=== PATIENT | male | born 1960 | race Caucasian/White ===

== ENCOUNTER → 2024-10-18 | Outpatient (CLI) | payer BC ==
--- NOTE | 2024-10-18 08:59 | US ---
EXAMINATION TYPE: US abdomen complete DATE OF EXAM: 10/18/2024 COMPARISON: NONE CLINICAL INDICATION: Male, 64 years old with history of R10.11 ABD PAIN; pt believes he had a gallbla dder attack back in july on , ruq pain TECHNIQUE: Grayscale and color Doppler imaging of the abdomen was performed. FINDINGS: EXAM MEASUREMENTS: Liver Length: 20.4 cm Gallbladder Wall: 0.2 cm CBD: 0.6 cm, color Doppler imaging was utilized to isolate the common bile duct for measurement. Spleen: 11.7 cm Right Kidney: 12.3x5.8x6.7 cm Left Kidney: 12.2x5.4x5.9 cm KETTLE TENDER NOTES: limited scan due to overlying gas Pancreas: Obscured by bowel gas Liver: Increased attenuation, decreased visualization of vessels suggestive of fatty infiltrate, dif ficult to penetrate Gallbladder: ?echogenic foci seen: 0.7cm Evidence for sonographic Sanchez's sign: No CBD: wnl Spleen: wnl Right Kidney: wnl, No hydronephrosis, calculi or masses seen Left Kidney: wnl, No hydronephrosis, calculi or masses seen Upper IVC: wnl as best seen Abd Aorta: prox: slightly limited views due to overlying gas,mid/distal: wnl as best seem Pancreas is obscured by overlying bowel gas. The liver demonstrates diffuse increased echogenicity an d difficult to penetrate. No focal lesion identified. Liver is enlarged. Gallbladder demonstrates an echogenic focus consistent with a gallstone. No wall thickening or surrounding fluid. Negative sonogr aphic Sanchez's sign. Common bile duct is within normal limits. Spleen is unremarkable. Both kidneys d emonstrate no hydronephrosis, shadowing calculus or solid mass. Visualized portions of the upper IVC are within normal limits. The visualized portions of abdominal aorta are within normal limits. IMPRESSION: 1. Hepatomegaly with diffuse fatty infiltration. No focal lesion. 2. Cholelithiasis without ultrasound evidence for acute cholecystitis. [facility], , 10/18/2024 8:56 AM
== END | disposition home or self-care (01) ==
LOC: RADUSWWP 07:12
PROVIDERS: ATTEND Family Medicine
DX: K80.20 Calculus of gallbladder without cholecystitis without obstruction (principal); R16.0 Hepatomegaly, not elsewhere classified
CPT/HCPCS: 76700